=== PATIENT | female | born 1995 | race Caucasian/White ===

== ENCOUNTER → 2018-10-05 | Outpatient (CLI) | payer MEDICAID | LOC: BMCIMAGING 10:52 | PROVIDERS: ATTEND Nurse Practitioner Adult Health | DX: M79.641 Pain in right hand (principal) ==

== ENCOUNTER 2018-10-17 08:03 | Day surgery (SDC) | payer MEDICAID ==
[2018-10-17] MEDS ORDERED: ceFAZolin 2 GM/DEXTROSE 100 ML IV ONE (08:27)
[2018-10-17] MEDS ORDERED: LR 1,000 ML IV ONE (08:27)
[2018-10-17] MEDS ORDERED: MIDAZOLAM 2 MG/2 ML VIAL IVP ONE (09:03)
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
[2018-10-17] MEDS ORDERED: BUPIVACAINE/EPI 0.5% 30 ML SDV ONE (09:21)
[2018-10-17] MEDS ORDERED: BACITRACIN 50,000 UNITS/10 ML SYR IRR ONE (09:21)
--- NOTE | 2018-10-17 09:27 | PDHPUP ---
History & Physical Update H&P update statement: This history and physical update is based on an assessment of the patient which was completed after admission or registration (within 24 hours), but prior to the surgery/procedure. H&P update: H&P reviewed & patient examined, no change in patient's condition since H&P completed
[2018-10-17] MEDS ORDERED: PROPOFOL 200 MG/20 ML VIAL ONE ×3 (09:34→10:23)
[2018-10-17] MEDS ORDERED: fentaNYL 100 MCG/2 ML INJ ONE ×2 (09:34→12:14)
[2018-10-17] MEDS ORDERED: LIDOCAINE 2% 100 MG/5 ML SYR ONE (09:34)
[2018-10-17] MEDS ORDERED: MIDAZOLAM 2 MG/2 ML VIAL ONE (09:38)
[2018-10-17] MEDS ORDERED: DEXAMETHASONE 4 MG/ML VIAL ONE (09:58)
[2018-10-17] MEDS ORDERED: ONDANSETRON 4 MG/2 ML VIAL ONE ×2 (09:58→13:00)
[2018-10-17] MEDS ORDERED: LR 500 ML IV PRN (10:03)
[2018-10-17] MEDS ORDERED: MEPERIDINE 25 MG/0.5 ML AMP IVP PRN (10:03)
[2018-10-17] MEDS ORDERED: ONDANSETRON 4 MG/2 ML VIAL IVP PRN (10:03)
[2018-10-17] MEDS ORDERED: HYDROCODONE/APAP 5/325 TAB PO PRN (10:03)
[2018-10-17] MEDS ORDERED: NALOXONE HCL 0.4 MG/ML INJ IVP PRN (10:03)
[2018-10-17] MEDS ORDERED: HYDROmorphONE/DILAUDID 2 MG/ML INJ IVP PRN (10:03)
--- NOTE | 2018-10-17 11:13 | POSTANESTH ---
Post Anesthetic Evaluation Cardiovascular Status: Normal, Stable Respiratory Status: Normal, Stable Level of Consciousness/Mental Status: Can Participate in Eval, Alert and Oriented Pain Control: Adequate, Prn Tx Ordered Nausea/Vomiting Control: Adequate, Prn Tx Ordered Complications Possibly Related to Anesthesia: None Noted
[2018-10-17] MEDS ORDERED: HYDROCODONE/APAP 5/325 TAB ONE (11:30)
[2018-10-17] MEDS: fentaNYL 100 MCG/2 ML INJ IVP PRN ×2 (12:20→12:45)
[2018-10-17 14:14] VITALS: BP 118/74
[2018-10-17] MEDS ORDERED: oxyCODONE IR 5 MG TAB ONE (14:31)
[2018-10-17] MEDS ORDERED: oxyCODONE IR 5 MG TAB PO ONE (14:45)
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
== END 2018-10-17 14:50 | disposition home or self-care (01) ==
LOC: FSGY 08:03
PROVIDERS: ATTEND Orthopaedic Surgery Hand Surgery
PROC: 0MQ70ZZ Repair Right Hand Bursa and Ligament, Open Approach (ICD-10-PCS; principal; 2018-10-17 09:30)
DX: S63.641A Sprain of metacarpophalangeal joint of right thumb, initial encounter (principal); Y04.8XXA Assault by other bodily force, initial encounter; W01.0XXA Fall on same level from slipping, tripping and stumbling without subsequent striking against object, initial encounter; F17.210 Nicotine dependence, cigarettes, uncomplicated; Y92.89 Other specified places as the place of occurrence of the external cause; Y93.9 Activity, unspecified; M54.5 Low back pain
CPT/HCPCS: C1713; J0690; J1100; J2001; J2250; J2405; J2704; J3010